=== PATIENT | female | born 1995 | race Hispanic/Latino ===

== ENCOUNTER 2017-06-19 07:21 | Day surgery (SDC) | payer OTHER ==
[2017-06-18 12:40] VITALS: BMI 26.6
[2017-06-19 08:10] LABS: #Eosinphils 0.1 thou/uL (0.0-0.7); #Lymphocytes 1.6 thou/uL (1.20-3.40); #Monocytes 0.5 thou/uL (0.11-0.59); #Neutrophils 4.3 thou/uL (1.40-6.50); %Basophils 0.7 % (0.0-1.0); %Eosinophils 1.4 % (0.0-10.0); %Lymphocytes 24.4 % (28.0-48.0); %Monocytes 7.1 % (0.0-4.0); %Neutrophils 66.5 % (31.0-61.0); Hemoglobin 12.7 g/dL (12.0-16.0); Mean Corpuscular HGB CONC 33.3 g/dL (32.0-36.0); Mean Corpuscular Hemoglobin 33.4 pg (25.0-35.0); Platelet Count 235 thou/uL (130-400); RBC Distribution Width 11.5 % (11.5-14.5); Red Blood Cell (RBC) Count 3.79 mill/uL (4.00-5.20); White Blood Cell (WBC) Count 6.5 thou/uL (4.8-10.8)
[2017-06-19] MEDS ORDERED: Midazolam HCl 2 mg/2 ml Vial ONE (09:00)
[2017-06-19] MEDS ORDERED: Fentanyl 100 MCG/2 ML VIAL ONE ×3 (09:01→11:08)
[2017-06-19] MEDS ORDERED: CEFAZOLIN/Water 2 GM/20 ML SYRINGE ONE (09:28)
[2017-06-19] MEDS ORDERED: Bupivacaine/Epinephrine 0.25% 30 ML VIAL ONE (09:55)
[2017-06-19] MEDS ORDERED: Ketorolac Tromethamine 30 MG/ML VIAL ONE (11:05)
--- NOTE | 2017-06-19 11:11 | OP ---
DATE OF PROCEDURE: 06/19/2017 PREOPERATIVE DIAGNOSIS: Bilateral mid substance Achilles tendon acute rupture, traumatic in nature. POSTOPERATIVE DIAGNOSIS: Bilateral mid substance Achilles tendon acute rupture, traumatic in nature. PROCEDURES PERFORMED: 1. Open primary repair, left Achilles tendon. 2. Open primary repair, right Achilles tendon. SURGEON: Franck Cespedes M.D. IRONER SOCK: Arnoldo Hooper PA-C. ANESTHESIA: General via endotracheal tube augmented with local infiltration of 0.5% Marcaine. COMPONENTS USED: A #2 Ethibond in a Woodruff type closing stitch and reapproximation oversewn with 0 Vicryl. DRAINS: None. SPECIMENS: None. COMPLICATIONS: None. COUNTS: Correct. TOURNIQUET TIME: Left lower extremity was 31 minutes and right lower extremity was 35 minutes. ESTIMATED BLOOD LOSS: Less than 10 mL. FINDINGS: Bilateral mid substance Achilles tendon ruptures, reapproximation and possible without geovanna rovascular injury. 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 She was seen in the clinic and scheduled for surgical management of this problem. PROCEDURE IN DETAIL: After informed consent was obtained in the preoperative holding area, the patie nt was brought to the operative suite where she received preoperative antibiotics. General anesthesi a was induced and endotracheal tube was placed and secured. Once adequate anesthesia was obtained, t he patient was positioned appropriately in the prone position. Bilateral tourniquets were placed ove r both proximal thighs. Well-padded tourniquets were then secured. The patient was then prepped and draped in usual sterile fashion with a bilateral extremity drape. The left Achilles was approached first. Sharp cut down was carried with a 15 blade. The peritenon was encountered exposing the Achil les rupture. This was a blunt dissected out digitally with a little bit of old bleeding and confirma tion of rupture site was then noted at the time of surgery. This was copiously irrigated with normal saline. A #2 Ethibond was then used to reapproximate the Achilles tendon using a Woodruff type stitc h. Good approximation was achieved near anatomic reduction. Then, this was oversewed peripherally w ith a 0 [id number] Vicryls through and through. Once this was completed, the entire wound was c opiously irrigated with normal saline. Local bleeding was controlled with Bovie electrocautery. Georgie yomi closure was accomplished with peritenon and 2-0 Vicryl. Subcutaneous layer was then closed with interrupted 2-0 Vicryl and subcuticular #2 Stratafix was then used to reapproximate the skin and Ash ri-Strips were applied. Sterile dressing was applied and a posterior splint was placed and allowed t o cure in a ballerina type position. Attention was then turned to the right lower extremity. A tour niquet was inflated and a primary cut down was accomplished with a 15 blade to the skin. The periten on was encountered quickly. This was also incised sharply, blunt dissection carried out digitally to expose the transverse tendon rupture. Much like the left tendon, this appeared to be a midsubstance transverse tendon rupture, very clean in nature. The tendon was then cleaned up with scissors. A # 2 Ethibond was then used to reapproximate in a Argenis type stitch with good near anatomic reduction. This was oversewn at the rupture site with 0 Vicryl in interrupted [id number] style stitches. After reapproximation, copious irrigation was carried out through the depth of the wound. Primary c losure of the peritenon was carried out with a 2-0 Vicryl and subcutaneous stitch was performed with 2-0 interrupted Vicryl. Subcuticular layer of 0-Stratafix stitch was then used to reapproximate the skin. Steri-Strips were applied. Sterile dressing was applied and a posterior splint was then place d and allowed to cure. Tourniquet was dropped prior to closure and no bleeding was identified. The procedure was terminated without any complication. The patient was rolled back into a supine positio n. She was extubated in the operative suite and taken to recovery room in stable condition.
[2017-06-19] MEDS ORDERED: Morphine 4 MG/ML VIAL ONE (12:32)
[2017-06-19] MEDS ORDERED: HYDROcodone/Acetaminophen 7.5/325 mg Tablet ONE (12:53)
[2017-06-19] MEDS ORDERED: Promethazine HCl 25 MG/ML VIAL ONE (14:05)
[2017-06-19] MEDS ORDERED: PROPOFOL 200 MG/20 ML VIAL ONE (17:09)
== END 2017-06-19 14:30 | disposition home or self-care (01) ==
LOC: SDC 07:21
PROVIDERS: ATTEND Orthopaedic Surgery
PROC: 0LQP0ZZ Repair Left Lower Leg Tendon, Open Approach (ICD-10-PCS; principal; 2017-06-19)
PROC: 0LQN0ZZ Repair Right Lower Leg Tendon, Open Approach (ICD-10-PCS; principal; 2017-06-19)
DX: S86.011A Strain of right Achilles tendon, initial encounter (principal); S86.012A Strain of left Achilles tendon, initial encounter; X50.0XXA Overexertion from strenuous movement or load, initial encounter; Y93.45 Activity, cheerleading
CPT/HCPCS: 36415; 84702; 85025; G8981-GP-CI; G8982-GP-CI; G8983-GP-CI; J1885; J2250; J2270; J2550; J2704; J3010